=== PATIENT | male | born 1970 | race Caucasian/White ===

== ENCOUNTER 2018-06-11 13:06 | Emergency (ER) | payer OTHER ==
[2018-06-11] MEDS ORDERED: ONDANSETRON 4 MG/2 ML VIAL IVP ONE (13:53)
[2018-06-11] MEDS ORDERED: PROMETHAZINE HCL 25 MG/ML INJ IVP ONE (13:53)
[2018-06-11] MEDS ORDERED: FAMOTIDINE 20 MG/NACL 50 ML IV ONE (13:53)
[2018-06-11] MEDS ORDERED: NS 500 ML IV ONE (13:53)
--- NOTE | 2018-06-11 13:59 | EDPHY ---
H & P Time Seen by Provider: 06/11/18 13:36 HPI/ROS: HPI Upper abdominal pain. 48-year-old male by private vehicle with his . This patient complains of sudden onset very severe epigastric pain described as sharp and burning, onset about 2 hr ago. He reports it was very intense for about 20 min. He reports he was diaphoretic and felt lightheaded. He reports that he had nausea with dry heaving. He reports that the intense pain then came down but he still complains of a dull epigastric pain at this time. He reports he has never had this pain before. Denies associated shortness of breath. Denies chest pain. Last meal was at 11:30 a.m.. He had a bowel movement during this painful episode. He denies bloody or melenic stool. Prior abdominal surgical history includes appendectomy. ROS: Constitutional: No fever, no chills. No weakness. Eyes: No discharge. No changes in vision. ENT: No sore throat. No nasal congestion or rhinorrhea. Respiratory: No cough. No shortness of breath. Cardiac: No chest pain, no palpitations. Gastrointestinal: As above, no diarrhea. Genitourinary: No hematuria. No dysuria or increased frequency with urination. Musculoskeletal: No back pain. No neck pain. No myalgias or arthralgias. Skin: No rashes. Neurological: No headache. No focal weakness or altered sensation. Past medical history: Appendectomy, multiple shoulder and orthopedic surgeries. Social history: Nonsmoker. No alcohol. Here with his . Physical Exam: General Appearance: Alert, he appears uncomfortable but not in distress. This patient is responding to questions appropriately and in full sentences. This patient appears well-hydrated and well-nourished. Eyes: Pupils equal and round no pallor or injection. No lid edema, erythema or injection. Respiratory: There are no retractions, lungs are clear to auscultation with good air movement bilaterally. Cardiovascular: Regular rate and rhythm. No murmur. Gastrointestinal: Abdomen is soft with mild to moderate epigastric tenderness on palpation, no masses, bowel sounds normal. No focal tenderness at McBurney' s point. No Gramajo sign. Neurological: Motor sensory function is grossly intact. Cranial nerves are normal. Gait is normal. Skin: Warm and dry, no rashes. Musculoskeletal: Neck is supple and nontender. Extremities are symmetrical. All joints range without pain or impingement. Psychiatric: No agitation. No depression. Database: EKG: EKG time is 2:02 p.m.; EKG shows a narrow complex normal sinus rhythm with a ventricular rate of 76. Q-waves noted in 2, 3 and AVF. The ME, QRS, QT intervals are within normal limits. There are no ST-T wave changes indicative of ischemic or injury pattern. No evidence of right heart strain. Interpreted by me. Imaging: CT abdomen and pelvis with IV contrast: This is an unremarkable study. No significant findings. The gallbladder appears unremarkable. The appendix appears unremarkable. The aorta is unremarkable. Results were discussed with staff radiologist Dr. Stephane Freeman. Procedures: Emergency department course: Triage vital signs reviewed and are normal. IV was placed. He was placed on a monitor. EKG obtained and reviewed by myself. He was started on IV normal saline with 500 cc to be given over the next hour. He declines pain medication at this time. He will be given 20 mg of IV Pepcid, 4 mg of IV Zofran and 6.25 mg of IV Phenergan for nausea. He consents to emergency department workup. 3:45 p.m., the patient was re-evaluated. Resting comfortably at this time. He denies any significant pain. Repeat abdominal exam is soft, nontender nondistended. Results of his CT scan and emergency department workup were discussed with him and his . Elevation of lipase discussed and diagnosis of a mild pancreatitis discussed. He feels comfortable going home at this time and I feel he is safe for discharge. He does not drink alcohol significantly. Follow-up and return to emergency department precautions were reviewed with the 2 of them. All of their questions were answered. The patient was discharged home in good condition with his . Differential Diagnosis: The differential diagnosis on this patient includes but is not limited to pancreatitis, ulcer versus non ulcerative gastritis, acute coronary syndrome, aortic dissection, cholecystitis. This represents a partial list of diagnoses considered. These considerations are based on history, physical exam, past history, reassessment and diagnostic testing. Smoking Status: Never smoked Constitutional: Initial Vital Signs Temperature (C) 37 C 06/11/18 13:06 Heart Rate 79 06/11/18 13:06 Respiratory Rate 16 06/11/18 13:06 Blood Pressure 112/74 06/11/18 13:06 O2 Sat (%) 94 06/11/18 13:06 O2 Delivery Mode Room Air Allergies/Adverse Reactions: clindamycin Allergy (Verified 06/11/18 13:12) Home Medications: Medication Instructions Recorded Docusate Sodium [Colace 100 MG (*)] 100 mg PO TID #20 cap 06/11/18 Naproxen [Naprosyn] 500 mg PO 06/11/18 oxyCODONE/APAP 5/325 [Percocet 1 - 2 tab PO Q4-6PRN PRN #14 tab 06/11/18 5/325 (*)] Medical Decision Making - Diagnostics Imaging Results: Imaging Impressions Abdomen CT 06/11/18 13:55 Impression: Negative. Pancreas appears normal. No source for symptoms identified. Results called to Dr. Cherry at 3:15 PM. General information for patients regarding this examination can be found At [email or web address]. If you have questions or comments about this report, please contact me at (hospital) or [phone] (cell). - Data Points Laboratory Results: Laboratory Results 06/11/18 14:10 06/11/18 14:10 06/11/18 06/11/18 06/11/18 14:44 14:10 14:10 WBC 9.45 10^3/uL 10^3/uL (3.80-9.50) RBC 4.95 10^6/uL 10^6/uL (4.40-6.38) Hgb 15.4 g/dL g/dL (13.7-17.5) Hct 45.3 % % (40.0-51.0) MCV 91.5 fL fL (81.5-99.8) MCH 31.1 pg pg (27.9-34.1) MCHC 34.0 g/dL g/dL (32.4-36.7) RDW 12.4 % % (11.5-15.2) Plt Count 164 10^3/uL 10^3/uL (150-400) MPV 9.5 fL fL (8.7-11.7) Neut % (Auto) 72.2 % % (39.3-74.2) Lymph % (Auto) 17.7 % % (15.0-45.0) Rowan % (Auto) 8.3 % % (4.5-13.0) Eos % (Auto) 1.1 % % (0.6-7.6) Baso % (Auto) 0.3 % % (0.3-1.7) Nucleat RBC Rel Count 0.0 % % (0.0-0.2) Absolute Neuts (auto) 6.83 10^3/uL H 10^3/uL (1.70-6.50) Absolute Lymphs (auto) 1.67 10^3/uL 10^3/uL (1.00-3.00) Absolute Monos (auto) 0.78 10^3/uL 10^3/uL (0.30-0.80) Absolute Eos (auto) 0.10 10^3/uL 10^3/uL (0.03-0.40) Absolute Basos (auto) 0.03 10^3/uL 10^3/uL (0.02-0.10) Absolute Nucleated RBC 0.00 10^3/uL 10^3/uL (0-0.01) Immature Gran % 0.4 % % (0.0-1.1) Immature Gran # 0.04 10^3/uL 10^3/uL (0.00-0.10) Sodium 135 mEq/L mEq/L (135-145) Potassium 4.2 mEq/L mEq/L (3.3-5.0) Chloride 101 mEq/L mEq/L (97-110) Carbon Dioxide 24 mEq/l mEq/l (22-31) Anion Gap 10 mEq/L mEq/L (6-14) BUN 22 mg/dL mg/dL (7-23) Creatinine 1.0 mg/dL mg/dL (0.7-1.3) Estimated GFR > 60 Glucose 81 mg/dL mg/dL (70-100) Calcium 9.2 mg/dL mg/dL (8.5-10.4) Total Bilirubin 1.4 mg/dL mg/dL (0.1-1.4) Conjugated Bilirubin 0.2 mg/dL mg/dL (0.0-0.5) Unconjugated Bilirubin 1.2 mg/dL H mg/dL (0.0-1.1) AST 30 IU/L IU/L (17-59) ALT 31 IU/L IU/L (21-72) Alkaline Phosphatase 33 IU/L L IU/L (38-126) POC Troponin I 0.00 ng/mL ng/mL (0.00-0.08) Total Protein 7.1 g/dL g/dL (6.3-8.2) Albumin 4.2 g/dL g/dL (3.5-5.0) Lipase 486 IU/L H IU/L (23-300) Medications Given: Discontinued Medications Sodium Chloride (Ns) 500 mls @ 1,000 mls/hr IV EDNOW ONE PRN Reason: Protocol Stop: 06/11/18 14:22 Last Admin: 06/11/18 14:00 Dose: 500 mls Famotidine/Sodium Chloride (Pepcid 20 Mg (Premix)) 50 mls @ 200 mls/hr IV EDNOW ONE Stop: 06/11/18 14:07 Last Admin: 06/11/18 14:05 Dose: 50 mls Ondansetron HCl (Zofran) 4 mg IVP EDNOW ONE Stop: 06/11/18 13:54 Last Admin: 06/11/18 14:05 Dose: 4 mg Promethazine HCl (Phenergan) 6.25 mg IVP EDNOW ONE Stop: 06/11/18 13:54 Last Admin: 06/11/18 14:05 Dose: 6.25 mg Point of Care Test Results: Chemistry 06/11/18 14:44 POC Troponin I 0.00 ng/mL ng/mL (0.00-0.08) Departure - Departure Disposition: Home, Routine, Self-Care Clinical Impression: Abdominal pain, Pancreatitis Condition: Good Instructions: Pancreatitis (ED) Additional Instructions: Read and follow provided instructions. Follow-up with your primary care physician in 1-2 days for re-evaluation as discussed. Take medication as prescribed for pain. Narcotic pain medication dosin-2 every 4-6 hours as needed for pain. Take stool softeners with this medication. Do not drive while on this medication. Return to the emergency department for worsening pain, vomiting, dark or black stool, rectal bleeding or other serious concerns. Referrals: RADHA CASTREJON [Other] - As per Instructions Prescriptions: Docusate Sodium [Colace 100 MG (*)] 100 mg PO TID #20 cap oxyCODONE/APAP 5/325 [Percocet 5/325 (*)] 1 - 2 tab PO Q4-6PRN PRN #14 tab PRN Reason: For Moderate To Severe Pain
[2018-06-11 14:27] LABS: PLATELET COUNT 164 10^3/uL (150-400)
[2018-06-11] MEDS ORDERED: IOPAMIDOL (ISOVUE-300) 100 ML BTL ONE (14:43)
[2018-06-11 15:59] VITALS: BP 135/78
--- NOTE | 2018-06-11 21:43 | CPEKG ---
Test Reason : OPEN Blood Pressure : / mmHG Vent. Rate : 076 BPM Atrial Rate : 077 BPM P-R Int : 174 ms QRS Dur : 087 ms QT Int : 383 ms P-R-T Axes : 009 022 008 degrees QTc Int : 431 ms Sinus rhythm Consider inferior infarct Confirmed by Keya Cherry ([id number] on 06/11/2018 9:43:27 PM Referred By: Confirmed By:Keya Cherry
== END 2018-06-11 15:59 | disposition home or self-care (01) ==
DX: K85.90 Acute pancreatitis without necrosis or infection, unspecified (principal); E86.9 Volume depletion, unspecified
CPT/HCPCS: 84484-PO; 96365; J2405; J2550; Q9967